=== PATIENT | male | born 1960 ===

== ENCOUNTER 2018-01-24 11:30 | Inpatient (IN) | payer OTHER ==
[~2018-01-24] VITALS: Ht 170.2 cm; Wt 83.5 kg
[2018-01-25] MEDS ORDERED: LOSARTAN-HCTZ1 EAC1 PO (14:05)
[2018-01-25] MEDS ORDERED: LIPITOR20 MG PO (14:05)
[2018-01-25] MEDS ORDERED: NORVASC5 MG PO (14:05)
[2018-01-25] MEDS ORDERED: JANUMET 50-1,01 EACH PO (14:06)
[2018-02-01] MEDS ORDERED: DOCUSATE SODIU100 MG PO (07:59)
[2018-02-01] MEDS ORDERED: CLONAZEPAM1 MG PO (08:00)
[2018-02-01] MEDS ORDERED: PERCOCET 5-3251 EACH PO (08:00)
== END 2018-02-01 13:17 | disposition home or self-care (01) | DRG 454 ==
LOC: O/R 01-31 05:00 → SURG 01-31 09:45 → PED 01-31 13:44
PROVIDERS: Orthopaedic Surgery Orthopaedic Surgery of the Spine
PROC: 0RG2071 Fusion of 2 or more Cervical Vertebral Joints with Autologous Tissue Substitute, Posterior Approach, Posterior Column, Open Approach (ICD-10-PCS; 2018-01-31)
PROC: 0RT30ZZ Resection of Cervical Vertebral Disc, Open Approach (ICD-10-PCS; 2018-01-31)
PROC: 07DS3ZZ Extraction of Vertebral Bone Marrow, Percutaneous Approach (ICD-10-PCS; 2018-01-31)
PROC: 0RG20A0 Fusion of 2 or more Cervical Vertebral Joints with Interbody Fusion Device, Anterior Approach, Anterior Column, Open Approach (ICD-10-PCS; principal; 2018-01-31 09:45)
DX: M50.021 Cervical disc disorder at C4-C5 level with myelopathy (principal); M47.12 Other spondylosis with myelopathy, cervical region; I10 Essential (primary) hypertension; E11.9 Type 2 diabetes mellitus without complications